=== PATIENT | female | born 2000 | race Hispanic/Latino ===

== ENCOUNTER 2023-12-22 19:02 | Observation (INO) | payer SELFPAY ==
[~2023-12-22 19:02] MED LIST: Iopamidol 300 61% 100 ML VIAL FS ONE
[2023-12-22 19:23] LABS: Bilirubin Neg (Negative); Blood, Urine 150 (Negative); Clarity Clear (Clear); Glucose, Urine (Dipstick) Normal (Negative); Ketone, Urine 50 mg/dL (Negative); Leukocyte 25 (Negative); Nitrite Negative (Negative); Protein, Urine (Dipstick) 30 mg/dl (Neg-Trace); pH, Urine 6.5 (5.0-9.0)
[2023-12-22 19:25] LABS: Pregnancy Test - Urine (BHCG) Negative (Negative); Pregu Control Background? CLEAR/WHITE (CLR/WHITE); Pregu Control Bar Appear? YES (CONTROL BAR)
[2023-12-22] MEDS ORDERED: Morphine 4 MG/ML VIAL ONE ×2 (19:28→21:56)
[2023-12-22] MEDS ORDERED: Ondansetron PF 4 MG/2 ML Vial ONE (19:28)
[2023-12-22 19:30] LABS: CAUTI Indications for Culture Pelvic or flank pain; WBC/HPF 0-3 HPF (0-3)
[2023-12-22 19:31] LABS: Bacteria/HPF 3+ HPF (None Seen); Mucous/LPF 1+ LPF (<2+); Squamous Epithelial 0-3 HPF (0-3); Urine Culture Reflex No No
[2023-12-22 19:39] LABS: Hematocrit 42.8 % (34.9-44.5); Hemoglobin 14.8 g/dL (12.0-15.5); Mean Corpuscular HGB CONC 34.6 g/dL (32.0-36.0); Mean Corpuscular Hemoglobin 29.8 pg (27.0-33.0); Mean Corpuscular Volume 86.3 fL (81.6-98.3); Platelet Count 312 10x3/uL (150-450); RBC Distribution Width 13.2 % (11.5-14.5); Red Blood Cell (RBC) Count 4.96 10x6/uL (3.90-5.03); White Blood Cell (WBC) Count 26.9 10x3/uL (3.5-10.5)
[2023-12-22 19:43] LABS: BHCG - Serum Negative (NEGATIVE); Pregs Control Background? CLEAR/WHITE (CLR/WHITE); Pregs Control Bar Appear? YES (CONTROL BAR)
[2023-12-22 19:51] LABS: ALT (SGPT) 8 U/L (8-55); AST (SGOT) 13 U/L (5-34); Albumin 3.9 g/dL (3.5-5.0); Alkaline Phosphatase 56 U/L (40-110); Anion Gap 16 mmol/L (10-20); BUN (Urea Nitrogen) 7 mg/dL (7.0-18.7); Bilirubin, Total 1.3 mg/dL (0.2-1.2); Calc. Creatinine Clearance 0 mL/min (70-130); Calcium 9.5 mg/dL (7.8-10.44); Carbon Dioxide 22 mmol/L (22-29); Chloride 100 mmol/L (98-107); Estimated GFR 104; Globulin 3.7 g/dL (2.4-3.5); Glucose 113 mg/dL (70-105); Lipase 12 U/L (8-78); Potassium 3.4 mmol/L (3.5-5.1); Protein, Total 7.6 g/dL (6.0-8.3); Sodium 135 mmol/L (136-145)
[2023-12-22 20:01] LABS: MDiff Complete? YES
[2023-12-22 20:02] LABS: Lymphocytes 8 % (21-51); Monocytes 3 % (0-10); Neutrophil 89 % (42-75)
[2023-12-22 20:03] LABS: Platelet Adequacy Comment Appears Adequate; RBC Morph Comment Within Normal Limits
[2023-12-22] MEDS ORDERED: Piperacillin/Tazobactam 4.5 GM VIAL ONE (21:05)
[2023-12-22] MEDS ORDERED: hydrALAZINE 20 MG/ML VIAL SLOW IVP PRN (21:32)
[2023-12-22] MEDS ORDERED: Ondansetron PF 4 MG/2 ML Vial IVP PRN (21:32)
[2023-12-22] MEDS ORDERED: Promethazine HCl 25 MG/ML VIAL IM PRN (21:32)
[2023-12-22] MEDS ORDERED: Acetaminophen 325 MG TAB PO PRN (21:32)
[2023-12-22] MEDS ORDERED: Morphine 4 MG/ML VIAL SLOW IVP PRN (21:32)
[2023-12-22] MEDS: Lactated Ringer's 1,000 ML IV SCH (23:20)
[2023-12-22 23:45] VITALS: BMI 25.7
[2023-12-23 06:13] LABS: Mean Corpuscular HGB CONC 33.3 g/dL (32.0-36.0); Mean Corpuscular Hemoglobin 29.6 pg (27.0-33.0); Mean Corpuscular Volume 88.7 fL (81.6-98.3); Mean Platelet Volume 10.1 fL (7.4-10.4); Platelet Count 240 10x3/uL (150-450); RBC Distribution Width 13.3 % (11.5-14.5); Red Blood Cell (RBC) Count 4.06 10x6/uL (3.90-5.03); White Blood Cell (WBC) Count 28.8 10x3/uL (3.5-10.5)
[2023-12-23 06:24] LABS: Anion Gap 13 mmol/L (10-20); BUN (Urea Nitrogen) 6 mg/dL (7.0-18.7); Calc. Creatinine Clearance 138 mL/min (70-130); Carbon Dioxide 20 mmol/L (22-29); Chloride 106 mmol/L (98-107); Potassium 3.2 mmol/L (3.5-5.1); Sodium 136 mmol/L (136-145)
[2023-12-23 06:25] LABS: Calcium 8.2 mg/dL (7.6-10.4); Estimated GFR 127; Glucose 88 mg/dL (70-105)
[2023-12-23 06:38] LABS: MDiff Complete? YES
[2023-12-23 06:45] LABS: Lymphocytes 8 % (21-51); Monocytes 2 % (0-10); Neutrophil 89 % (42-75); Other Cell Types 1
[2023-12-23 06:47] LABS: Platelet Adequacy Comment Appears Adequate; Toxic Granulation SLIGHT
[2023-12-23] MEDS: Piperacillin/Tazobactam 3.375 GM in Sodium Chloride 0.9% 100 ML IVPB SCH (07:46)
[2023-12-23] MEDS ORDERED: Doxycycline 100 MG in Sodium Chloride 0.9% 100 ML IVPB SCH (09:00)
[2023-12-23] MEDS ORDERED: Famotidine/PF 20 mg/2ml Vial SLOW IVP SCH (09:00)
[2023-12-23] MEDS ORDERED: Ondansetron PF 4 MG/2 ML Vial ONE (09:32)
[2023-12-23] MEDS ORDERED: Lidocaine 2% PF 5 ML VIAL ONE (09:32)
[2023-12-23] MEDS ORDERED: Lidocaine 4% PF 5 ML AMP ONE (09:32)
[2023-12-23] MEDS ORDERED: PROPOFOL 20 ML ONE (09:41)
[2023-12-23] MEDS ORDERED: fentaNYL 50 mcg/mL 1 mL Vial ONE ×3 (09:41→12:29)
[2023-12-23] MEDS ORDERED: SUGAMMADEX SODIUM 200 MG/2 ML VIAL ONE (09:45)
[2023-12-23] MEDS ORDERED: Ketorolac Tromethamine 30 MG (1 mL) VIAL ONE (11:17)
[2023-12-23] MEDS ORDERED: Bupivacaine PF 0.5% 30 ML VIAL ONE (12:35)
[2023-12-23] MEDS ORDERED: EPINEPHrine 1 MG/ML AMP ONE (12:35)
[2023-12-23] MEDS ORDERED: traMADol HCl 50 MG TAB PO PRN (12:51)
[2023-12-23] MEDS ORDERED: Morphine 4 MG/ML VIAL SLOW IVP PRN ×2 (12:52→13:16)
[2023-12-23] MEDS ORDERED: Lactated Ringer's 1,000 ML IV SCH (12:52)
[2023-12-23] MEDS: Lactated Ringer's 1,000 ML IV SCH (17:25)
[2023-12-23] MEDS: Acetaminophen 500 MG TAB PO SCH (17:26)
[2023-12-23] MEDS: Ketorolac Tromethamine 30 MG (1 mL) VIAL IVP SCH (18:00)
[2023-12-23] MEDS ORDERED: Acetaminophen 500 MG TAB PO SCH (18:00)
[2023-12-23] MEDS: traMADol HCl 50 MG TAB PO PRN (21:05)
[2023-12-23] MEDS: Enoxaparin 40 MG (0.4 mL) SYRINGE SC SCH (21:06)
[2023-12-24 12:51] VITALS: BP 107/71; TEMP 98.3
[2023-12-24] MEDS ORDERED: Ibuprofen 600 MG TAB PO PRN (13:12)
[2023-12-24] MEDS ORDERED: Amoxicillin/Potassium Clav 500 MG TAB PO SCH (21:00)
== END 2023-12-24 16:51 | disposition home or self-care (01) ==
LOC: CSHERS 19:02 → CSHTELE 22:38
PROVIDERS: ADMIT Surgery; ATTEND Surgery
PROC: 0DTJ4ZZ Resection of Appendix, Percutaneous Endoscopic Approach (ICD-10-PCS; principal; 2023-12-24)
DX: K35.80 Unspecified acute appendicitis (principal)
CPT/HCPCS: 36415; 74177; 76856; 80048; 80053; 81001; 81025; 83605; 83690; 84703; 85025; 87040; 88304; 93976; 96374; 96375; 96376; A4649; G0378; J0171; J0665; J1650; J1885; J2001; J2270; J2405; J2543; J2704; J3010; J3490; J7120; Q9967